=== PATIENT | female | born 1990 | race American Indian/Alaskan Native ===

== ENCOUNTER 2016-07-21 18:35 | Emergency (ER) | payer OTHER ==
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
[2016-07-21 19:15] LABS: Basophils % (Auto) 0.3 % (0.0-1.8); Eosinophils % (Auto) 0.9 % (0.0-4.3); Hematocrit 31.5 % (30.3-42.9); Hemoglobin 10.3 gm/dl (10.1-14.3); Mean Corpuscular HGB Conc 33 % (30-34); Mean Corpuscular Hemoglobin 28 pg (28-32); Mean Corpuscular Volume 85 fl (79-97); Platelet Count 273 K/mm3 (140-440); Red Blood Count 3.69 M/mm3 (3.65-5.03); Red Cell Distribution Width 17.3 % (13.2-15.2); White Blood Count 7.3 K/mm3 (4.5-11.0)
[2016-07-21 19:26] LABS: INR 1.04 (0.87-1.13)
[2016-07-21 19:27] LABS: Partial Thromboplastin Time 32.5 Sec. (24.2-36.6)
[2016-07-21 19:36] LABS: Alanine Aminotransferase 6 units/L (7-56); Albumin 3.9 g/dL (3.9-5); Albumin/Globulin Ratio 1.3 %; Alkaline Phosphatase 49 units/L (35-129); Anion Gap 16 mmol/L; BUN/Creatinine Ratio 13.33; Bilirubin,Total 0.5 mg/dL (0.1-1.2); Blood Urea Nitrogen 8 mg/dL (7-17); Calcium 9.1 mg/dL (8.4-10.2); Carbon Dioxide 25 mmol/L (22-30); Chloride 100.4 mmol/L (98-107); Creatine Kinase 61 units/L (30-135); Glucose 110 mg/dL (65-100); Sodium 137 mmol/L (137-145)
[2016-07-21 19:38] LABS: Creatine Kinase MB < 1.0 ng/mL (0.0-4.0)
--- NOTE | 2016-07-21 21:30 | Emergency Department Report ---
ED Chest Pain HPI - General Chief Complaint: Chest Pain Stated Complaint: CHEST PAIN/HEADACHE Time Seen by Provider: 07/21/16 21:25 Source: patient Mode of arrival: Ambulatory Limitations: No Limitations - Related Data Previous Rx's Medication Instructions Recorded Last Taken Type Naproxen [Naprosyn] 500 mg PO BID #14 tablet 07/22/16 Unknown Rx Allergies Allergy/AdvReac Type Severity Reaction Status Date / Time Iodinated Contrast Media - AdvReac Rash Verified 07/21/16 18:52 IV Dye THIAGO score - Thiago Score Age > 65: (0) No Aspirin use within the Past 7 Days: (0) No 3 or more CAD Risk Factors: (0) No 2 or more Angina events in past 24 hrs: (0) No Known CAD with more than 50% Stenosis: (0) No Elevated Cardiac Markers: (0) No ST Deviation Greater than 0.5mm: (0) No THIAGO Score: 0 ED Review of Systems ROS: Stated complaint: CHEST PAIN/HEADACHE Other details as noted in HPI ED Past Medical Hx - Past Medical History Previous Medical History?: Yes Hx Pulmonary Embolism: Yes - Surgical History Past Surgical History?: No - Social History Smoking Status: Never Smoker Substance Use Type: None - Medications Home Medications: Home Medications Medication Instructions Recorded Confirmed Last Taken Type Naproxen [Naprosyn] 500 mg PO BID #14 tablet 07/22/16 Unknown Rx ED Physical Exam - General Limitations: No Limitations ED Course Vital Signs 07/21/16 07/22/16 18:47 01:12 Temperature 99 F Pulse Rate 89 Respiratory 18 20 Rate Blood Pressure 134/93 O2 Sat by Pulse 100 100 Oximetry ED Medical Decision Making - Lab Data Result diagrams: 07/21/16 19:00 07/21/16 19:00 - EKG Data -: EKG Interpreted by Me (18:42 [id number]) EKG shows normal: sinus rhythm, axis (normal axis), intervals, QRS complexes ( QTc:391ms), ST-T waves (TWI in inferior leads, V3,V4) Rate: normal (76bpm) - Radiology Data Radiology results: report reviewed CTA: No PE no focal consolidation - Medical Decision Making Results discussed with patient, advised to follow up with PMD Critical care attestation.: If time is entered above; I have spent that time in minutes in the direct care of this critically ill patient, excluding procedure time. ED Disposition Clinical Impression: Chest wall pain Disposition: DISCHARGED TO HOME OR SELFCARE Is pt being admited?: No Condition: Stable Instructions: Chest Pain (ED) Prescriptions: Naproxen [Naprosyn] 500 mg PO BID #14 tablet
[2016-07-21 22:38] LABS: Bilirubin,Urine NEG (Negative); Blood,Urine NEG (Negative); Ketones,Urine NEG (Negative); Leukocyte Esterase,Urine MOD (Negative); Mucus,Urine 1+ /HPF; Nitrite,Urine NEG (Negative); Protein,Urine <15 mg/dL mg/dL (Negative); Urobilinogen,Urine < 2.0 mg/dL (<2.0)
[2016-07-22] MEDS: BENADRYL IV ONE (00:40)
--- NOTE | 2016-07-22 00:59 | Cat Scan Report ---
FINAL REPORT EXAM: CT ANGIO CHEST HISTORY: sob stabbing chest pain hx pe COMPARISON: None available. TECHNIQUE: Contiguous axial images were obtained. Additional sagittal and coronal reformatted images were obtained. Max intensity projection images. 100 cc Omnipaque 350. FINDINGS: Heart normal in size. Thoracic aorta normal in caliber. No intimal flap. No pulmonary embolus. No enlarged intrathoracic or axillary lymph nodes. No focal consolidation or pleural effusion. Tracheobronchial tree is patent. Visualized upper abdomen is grossly unremarkable. Bony thorax is grossly intact. IMPRESSION: No pulmonary embolus. No focal consolidation.
[2016-07-22] MEDS: NACL ONE (01:27)
[2016-07-22 02:00] VITALS: BP 108/61
== END 2016-07-22 01:58 | disposition home or self-care (01) ==
LOC: ED 18:35
DX: R07.89 Other chest pain (principal); I26.99 Other pulmonary embolism without acute cor pulmonale; Z88.8 Allergy status to other drugs, medicaments and biological substances
CPT/HCPCS: 36415; 71275; 80053; 81001; 81025; 82550; 82553; 84484; 85025; 85379; 85610; 85730; 93005; 93010; 96374; 96375; 99284; J1200; J2930; Q9967

== ENCOUNTER 2018-12-19 19:50 | Emergency (ER) | payer SELFPAY ==
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
[2018-12-19 21:09] LABS: Hematocrit 37.4 % (30.3-42.9); Hemoglobin 13.2 gm/dl (10.1-14.3); Mean Corpuscular HGB Conc 35 % (30-34); Mean Corpuscular Volume 94 fl (79-97); Platelet Count 307 K/mm3 (140-440); Red Blood Count 3.98 M/mm3 (3.65-5.03); Red Cell Distribution Width 12.2 % (13.2-15.2)
[2018-12-19 21:30] LABS: BUN/Creatinine Ratio 15; Blood Urea Nitrogen 9 mg/dL (7-17); Calcium 9.4 mg/dL (8.4-10.2); Hemolysis Index 11
[2018-12-19 21:44] LABS: Bilirubin,Urine NEG (Negative); Blood,Urine NEG (Negative); Color,Urine Yellow (Yellow); HCG Qualitative,Urine Negative (Negative); Mucus,Urine FEW /HPF
[2018-12-20] MEDS ORDERED: PEPCID PO ONE (00:25)
[2018-12-20] MEDS ORDERED: ZOFRAN ODT PO ONE (00:26)
--- NOTE | 2018-12-20 00:37 | Emergency Department Report ---
Vomiting/Diarrhea - HPI Chief Complaint: Nausea/Vomiting/Diarrhea Stated Complaint: EMESIS/THROAT PAIN Time Seen by Provider: 12/19/18 20:51 Duration: 1 Day Severity: mild Nausea/Vomiting Severity: Mild Diarrhea Severity: None Pain Location: Other (none) Symptoms: Yes Able to Tolerate Fluids, No Watery Diarrhea, No Bloody diarrhea, No Fever, No Recent Unusual Foods, No Recent Untreated Water, No Recent use of Antibiotics, No Family w/ Similar Symptoms, No Contacts w/ Similar Symptoms, No Rash, No Hematuria, No Recent URI Symptoms Other History: This is a 28-year-old female presents to ED with several episodes of vomiting that began today this morning. Patient denies unusual foods. Sherin ent states she cannot recall them on the vomiting she had. She denies abdominal pain, diarrhea or any other symptoms. ED Review of Systems ROS: Stated complaint: EMESIS/THROAT PAIN Other details as noted in HPI Comment: All other systems reviewed and negative ED Past Medical Hx - Past Medical History Previous Medical History?: Yes Hx Pulmonary Embolism: Yes Hx Asthma: Yes Additional medical history: Bronchitis, H.pylori, PE, Congenital Heart Disease, Sleep Apnea - Surgical History Past Surgical History?: Yes Additional Surgical History: IUD - Social History Smoking Status: Never Smoker - Medications Home Medications: Home Medications Medication Instructions Recorded Confirmed Last Taken Type Naproxen [Naprosyn] 500 mg PO BID #14 tablet 07/22/16 Unknown Rx Famotidine [Pepcid] 20 mg PO BID #20 tablet 12/20/18 Unknown Rx Nystas/Diphen/Xyl Visc/Mylanta 30 ml MM Q6H #120 ml 12/20/18 Unknown Rx [Magic Mouthwash] Ondansetron [Zofran ODT TAB] 8 mg PO TID #20 tab.rapdis 12/20/18 Unknown Rx Vomiting Diarrhea Exam - Exam General: Vital signs noted. No distress. Alert and acting appropriately. HEENT: Yes Moist Mucous Membranes, No Pharyngeal Erythema, No Pharyngeal Exudates, No Rhinorrhea, No Conjuctival Injection, No Frontal Tenderness, No Maxillary Tenderness Neck: No Adenopathy, No Rigidity Lungs: Yes Clear Lung Sounds, Yes Good Air Exchange, No Wheezes, No Stridor, No Cough, No Nasal Flaring, No Retractions, No Use of Accessory Muscles Heart exam: Regular: Yes, Murmur: No, Tachycardia: No Abdomen: Tenderness: No, Peritoneal Signs: No, Distention: No, Hyperactive Bowel sounds: No Skin exam: Rash: No, Edema: No, Normal turgor: Yes Neurologic: Alert and oriented, no deficits. Musculoskeletal: Unremarkable. ED Course Vital Signs 12/19/18 12/19/18 20:38 20:52 Temperature 98.8 F 98.8 F Pulse Rate 77 77 Respiratory 16 20 Rate Blood Pressure 117/73 Blood Pressure 117/73 [Left] O2 Sat by Pulse 98 98 Oximetry ED Medical Decision Making - Lab Data Result diagrams: 12/19/18 20:57 12/19/18 20:57 Laboratory Last Values WBC 10.0 K/mm3 (4.5-11.0) 12/19/18 20:57 RBC 3.98 M/mm3 (3.65-5.03) 12/19/18 20:57 Hgb 13.2 gm/dl (10.1-14.3) 12/19/18 20:57 Hct 37.4 % (30.3-42.9) 12/19/18 20:57 MCV 94 fl (79-97) 12/19/18 20:57 MCH 33 pg (28-32) H 12/19/18 20:57 MCHC 35 % (30-34) H 12/19/18 20:57 RDW 12.2 % (13.2-15.2) L 12/19/18 20:57 Plt Count 307 K/mm3 (140-440) 12/19/18 20:57 Sodium 142 mmol/L (137-145) 12/19/18 20:57 Potassium 4.1 mmol/L (3.6-5.0) 12/19/18 20:57 Chloride 101.1 mmol/L (98-107) 12/19/18 20:57 Carbon Dioxide 30 mmol/L (22-30) 12/19/18 20:57 15 mmol/L 12/19/18 20:57 BUN 9 mg/dL (7-17) 12/19/18 20:57 0.6 mg/dL (0.7-1.2) L 12/19/18 20:57 Estimated GFR > 60 ml/min 12/19/18 20:57 15 % 12/19/18 20:57 Glucose 84 mg/dL (65-100) 12/19/18 20:57 Calcium 9.4 mg/dL (8.4-10.2) 12/19/18 20:57 Yellow (Yellow) 12/19/18 Unknown Slightly-cloudy (Clear) 12/19/18 Unknown 7.0 (5.0-7.0) 12/19/18 Unknown Ur Specific [place] 1.025 (1.003-1.030) 12/19/18 Unknown 30 mg/dl mg/dL (Negative) 12/19/18 Unknown Neg mg/dL (Negative) 12/19/18 Unknown Neg mg/dL (Negative) 12/19/18 Unknown Neg (Negative) 12/19/18 Unknown Neg (Negative) 12/19/18 Unknown Neg (Negative) 12/19/18 Unknown 4.0 mg/dL (<2.0) 12/19/18 Unknown Ur Leukocyte Esterase Neg (Negative) 12/19/18 Unknown 2.0 /HPF (0.0-6.0) 12/19/18 Unknown 5.0 /HPF (0.0-6.0) 12/19/18 Unknown U Epithel Cells (Auto) 7.0 /HPF (0-13.0) 12/19/18 Unknown Few /HPF 12/19/18 Unknown Urine HCG, Qual Negative (Negative) 12/19/18 Unknown Plasma/Serum Alcohol < 0.01 % (0-0.07) 12/19/18 20:57 - Medical Decision Making 28-year-old who presents with mild vomiting episode without abdominal pain. All labs within normal limits urinalysis is normal. test negative Discussed this findings with the patient. patient received Pepcid and Zofran in the ED. There was no vomiting episodes during the ED. Patient was nontender. Abdomen Prior signs are normal and she is in no acute or respiratory distress. She understands instructions and is resting comfortably in bed and will follow- up. Critical care attestation.: If time is entered above; I have spent that time in minutes in the direct care of this critically ill patient, excluding procedure time. ED Disposition Clinical Impression: Vomiting, Acute gastritis without bleeding Disposition: DC-01 TO HOME OR SELFCARE Is pt being admited?: No Does the pt Need Aspirin: No Condition: Stable Instructions: Gastritis (ED), Acute Nausea and Vomiting (ED) Additional Instructions: Make sure to follow up with the primary care physician as discussed. Take all your medications as you've been prescribed. If you have any worsening symptoms or develop new symptoms please return to ED i mmediately. Prescriptions: Nystas/Diphen/Xyl Visc/Mylanta [Magic Mouthwash] 30 ml MM Q6H #120 ml Famotidine [Pepcid] 20 mg PO BID #20 tablet Ondansetron [Zofran ODT TAB] 8 mg PO TID #20 tab.blake Referrals: PRIMARY CARE, [Primary Care Provider] - 3-5 Days [facility] [Outside] - 3-5 Days [facility] [Outside] - 3-5 Days Forms: Accompanied Note, Work/School Release Form(ED) Time of Disposition: 00:38
[2018-12-20 02:04] VITALS: BP 115/76
== END 2018-12-20 01:10 | disposition home or self-care (01) ==
LOC: ED 19:50
DX: K29.00 Acute gastritis without bleeding (principal); J45.909 Unspecified asthma, uncomplicated; G47.30 Sleep apnea, unspecified; Z86.711 Personal history of pulmonary embolism; Z98.890 Other specified postprocedural states; Z79.899 Other long term (current) drug therapy; Z91.041 Radiographic dye allergy status
CPT/HCPCS: 36415; 80048; 80320; 81001; 81025; 85027; G0480; Q0162

== ENCOUNTER 2019-01-30 18:00 | Emergency (ER) | payer OTHER ==
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
[2019-01-30 19:17] VITALS: BP 126/86
== END 2019-01-30 19:32 | disposition home or self-care (01) ==
LOC: ED 18:00
DX: S46.912A Strain of unspecified muscle, fascia and tendon at shoulder and upper arm level, left arm, initial encounter (principal); S39.012A Strain of muscle, fascia and tendon of lower back, initial encounter; S09.90XA Unspecified injury of head, initial encounter; J45.909 Unspecified asthma, uncomplicated; Z86.711 Personal history of pulmonary embolism; Z79.899 Other long term (current) drug therapy; Z91.041 Radiographic dye allergy status; V49.49XA Driver injured in collision with other motor vehicles in traffic accident, initial encounter; Y93.89 Activity, other specified; Y92.410 Unspecified street and highway as the place of occurrence of the external cause; Y99.8 Other external cause status
CPT/HCPCS: 72100

== ENCOUNTER 2020-10-15 07:42 | Emergency (ER) | payer OTHER ==
[2020-10-15 08:25] VITALS: BP 168/97
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
== END 2020-10-15 09:00 | disposition home or self-care (01) ==
LOC: ED 07:42
DX: S49.91XA Unspecified injury of right shoulder and upper arm, initial encounter (principal); I10 Essential (primary) hypertension; J45.909 Unspecified asthma, uncomplicated; G47.30 Sleep apnea, unspecified; Z86.711 Personal history of pulmonary embolism; Z98.890 Other specified postprocedural states; Z91.041 Radiographic dye allergy status; Z79.899 Other long term (current) drug therapy; V89.2XXA Person injured in unspecified motor-vehicle accident, traffic, initial encounter; Y92.488 Other paved roadways as the place of occurrence of the external cause; Y93.89 Activity, other specified; Y99.8 Other external cause status
CPT/HCPCS: 99282